=== PATIENT | female | born 1960 ===

== ENCOUNTER 2017-05-29 17:15 | Emergency (ER) | payer SELFPAY ==
[2017-05-29] MEDS ORDERED: Cephalexin CAP* 500 MG PO ONE (18:11)
[2017-05-29] MEDS ORDERED: Ibuprofen TAB* 400 MG PO ONE (18:12)
--- NOTE | 2017-05-29 18:13 | UC ---
Skin Complaint HPI - HPI Summary HPI Summary: 56 y/o female presents to the urgent care c/o painful lump in her pubic area for the past 2 days. Pt states she had a similar lump 2 years ago on her clitoris. Pt just recently traveled here to the [place] for her father's . She has been in a lot of stress and she thinks this is the reason she got the lump. Pain is 3/10 at touch. Pt denies fever, urinary symptoms , vaginal discharge, HX of MRSA, SOB, chest pain, N/V/D. - History of Current Complaint Chief Complaint: UCGU Time Seen by Provider: 05/29/17 17:39 Stated Complaint: SOFT TISSUE COMPLAINT Hx Obtained From: Patient Hx Last Menstrual Period: menopausal ?: No Onset/Duration: Gradual Onset, Lasting Days - 2 days Skin Exposure Onset/Duration: Days Ago - 2 days Onset Severity: Mild Current Severity: Moderate Pain Intensity: 3 - at touch Pain Scale Used: 0-10 Numeric Location: Discrete - left side of suprapubic bone with small lump Character: Swelling, Painful Aggravating: Touch Alleviating: Nothing Associated Signs & Symptoms: Positive: Negative, Tenderness. Negative: Nausea, Vomiting, Fever, Chills, Abdominal Pain, Red Streaks, Joint Swelling - Allergy/Home Medications Allergies/Adverse Reactions: Allergies Allergy/AdvReac Type Severity Reaction Status Date / Time No Known Allergies Allergy Verified 05/29/17 17:37 Review of Systems Constitutional: Negative Skin: Other - LF side of pubic bone with small lump Eyes: Negative ENT: Negative Respiratory: Negative Cardiovascular: Negative Gastrointestinal: Negative Genitourinary: Negative Motor: Negative Neurovascular: Negative Musculoskeletal: Negative Neurological: Negative Psychological: Negative Is Patient Immunocompromised?: No All Other Systems Reviewed And Are Negative: Yes PMH/Surg Hx/FS Hx/Imm Hx Previously Healthy: Yes - Pt denies PMHX - Surgical History Surgical History: Yes Surgery Procedure, Year, and Place: tonsils as child. - Family History Known Family History: Positive: None - Pt denies FMHX - Social History Occupation: Unemployed Lives: With Family Alcohol Use: Rare Substance Use Type: None Smoking Status (MU): Never Smoked Tobacco Physical Exam Triage Information Reviewed: Yes Appearance: Well-Appearing, No Pain Distress, Well-Nourished, Thin Vital Signs: Initial Vital Signs Temp 98.6 F 05/29/17 17:27 Pulse 59 05/29/17 17:27 Resp 16 05/29/17 17:27 BP 111/59 05/29/17 17:27 Pulse Ox 98 05/29/17 17:27 Vital Signs Reviewed: Yes Eye Exam: Normal Eyes: Positive: Conjunctiva Clear - PERRLA, EOMI ENT Exam: Normal ENT: Positive: Normal ENT inspection, Hearing grossly normal, Pharynx normal, TMs normal Neck exam: Normal Neck: Positive: Supple, Nontender, No Lymphadenopathy Respiratory Exam: Normal Respiratory: Positive: Chest non-tender, Lungs clear, Normal breath sounds, No respiratory distress Cardiovascular Exam: Normal Cardiovascular: Positive: RRR, No Murmur, Pulses Normal Abdominal Exam: Normal Abdomen Description: Positive: Nontender, No Organomegaly, Soft. Negative: CVA Tenderness (R), CVA Tenderness (L) Bowel Sounds: Positive: Present Musculoskeletal Exam: Normal Musculoskeletal: Positive: Strength Intact, ROM Intact, No Edema Neurological Exam: Normal Psychological Exam: Normal Skin: Positive: Other - Left side of pubic area with a small indurated, movable cyst, tender to palpation , no erythema observed, No drainage observed. warm to touch about 0.5cm in size Course/Dx - Course Course Of Treatment: 56 y/o female presents to the urgent care c/o painful lump in her pubic area for the past 2 days. Pt states she had a similar lump 2 years ago on her clitoris. Pt just recently traveled here to the [facility] for her father's . She has been in a lot of stress and she thinks this is the reason she got the lump. Pain is 3/10 at touch. Pt denies fever, urinary symptoms , vaginal discharge, HX of MRSA, SOB, chest pain, N/V/D.HX obtained. On examination pt with a small movable indurated cyst in the pubic area. Pt Rx keflex PO, Ibuprofen PO for pain and advised to apply warm compresses and return to the clinic or PCP in 2 days to see if it was ready for I&D. Pt understood and agreed with plan of care and left the clinic ambulating. - Differential Diagnoses - Skin Complaint Differential Diagnoses: Abscess, Allergic Reaction, Cellulitis, Contact Dermatitis, Local Allergic Reaction, MRSA, Other - STD's - Diagnoses Provider Diagnoses: 1- Pubic skin abscess Discharge - Discharge Plan Condition: Stable Disposition: HOME Prescriptions: Cephalexin CAP* [Keflex CAP*] 500 mg PO QID #27 cap Ibuprofen TAB* [Motrin TAB* 800 MG] 800 mg PO Q6H #30 tab Patient Education Materials: Abscess (ED), Warm Compress or Soak (ED) Referrals: No Primary Care Phys,NOPCP [Primary Care Provider] - [facility] [Outside] - 3 Days Additional Instructions: 1-Please take full course of antibiotic to avoid resistance. Apply warm compresses on the small abscess to help with swelling and drainage 2-. Take Ibuprofen PO q6-8hrs prn for pain or swelling. 4-If after 48 hrs of antibiotics redness increases despite antibiotic please return to the Urgent care or f/u see a PCP from our referral line center
== END 2017-05-29 18:25 | disposition home or self-care (01) ==
LOC: UCEAST 17:15
DX: L02.214 Cutaneous abscess of groin (principal)
CPT/HCPCS: 99202; A9270-GY; G0463